=== PATIENT | male | born 1980 | race African-American/Black ===

== ENCOUNTER 2018-11-17 09:42 | Emergency (ER) | payer BC ==
--- NOTE | 2018-11-17 10:20 | ER Document Report ---
ED Extremity Problem, Lower - General Chief Complaint: Leg Pain Stated Complaint: RIGHT CALF PAIN Time Seen by Provider: 11/17/18 10:09 Primary Care Provider: [facility] [Provider Group] - Follow up as needed Mode of Arrival: Ambulatory Information source: Patient Notes: 38-year-old male presents to ED for complaint of right calf pain x2 weeks. He states that he fell asleep in a car after work for about 4 hours about a couple days before this pain started. He states both legs were hurting but the left leg stopped hurting in the right leg continued. He became more concerned when he drove to [place] and back and the pain became worse. Patient is alert oriented respirations regular and unlabored speaking in full sentences and he is able to walk with a even steady gait. There is no redness no swelling to the area. Patient is in no acute distress. Patient states he does smoke half pack a day. TRAVEL OUTSIDE OF THE [place] IN LAST 30 DAYS: No - HPI Patient complains to provider of: Pain. No: Injury, Swelling Location: Leg Occurred: Other - 2 weeks Onset/Duration: Gradual Quality of pain: Achy, Cramping Severity: Moderate Pain Level: 3 Recent injury: No Associated symptoms: Painful ambulation Exacerbated by: Walking Relieved by: Nothing - Related Data Allergies/Adverse Reactions: No Known Allergies Allergy (Unverified 11/17/18 09:42) Past Medical History - General Information source: Patient - Social History Smoking Status: Current Every Day Smoker Cigarette use (# per day): Yes - 1/2 pack/day Chew tobacco use (# tins/day): No Smoking Education Provided: Yes - 4 minutes Frequency of alcohol use: Occasional Drug Abuse: None Occupation: [employer] Lives with: Family Family History: Reviewed & Not Pertinent Patient has suicidal ideation: No Patient has homicidal ideation: No - Past Medical History Cardiac Medical History: Reports: Hx Hypercholesterolemia, Hx Hypertension Pulmonary Medical History: Reports: None EENT Medical History: Reports: None Neurological Medical History: Reports: None Endocrine Medical History: Reports: Hx Diabetes Mellitus Type 2 Renal/ Medical History: Reports: None Malignancy Medical History: Reports None GI Medical History: Reports: None Musculoskeletal Medical History: Reports None Skin Medical History: Reports None Psychiatric Medical History: Reports: None Traumatic Medical History: Reports: None Infectious Medical History: Reports: None Surgical Hx: Negative Past Surgical History: Reports: None Review of Systems - Review of Systems Constitutional: No symptoms reported EENT: No symptoms reported Cardiovascular: No symptoms reported Respiratory: No symptoms reported Gastrointestinal: No symptoms reported Genitourinary: No symptoms reported Male Genitourinary: No symptoms reported Musculoskeletal: Other - Right calf pain Skin: No symptoms reported Hematologic/Lymphatic: No symptoms reported Neurological/Psychological: No symptoms reported -: Yes All other systems reviewed and negative Physical Exam - Vital signs Vitals: Temp Pulse Resp BP Pulse Ox 98.7 F 89 16 165/88 H 97 11/17/18 09:51 11/17/18 09:51 11/17/18 09:51 11/17/18 09:51 11/17/18 09:51 Interpretation: Normal - General General appearance: Appears well, Alert - HEENT Head: Normocephalic, Atraumatic Eyes: Normal Pupils: PERRL - Respiratory Respiratory status: No respiratory distress Chest status: Nontender Breath sounds: Normal Chest palpation: Normal - Cardiovascular Rhythm: Regular Heart sounds: Normal auscultation Murmur: No - Abdominal Inspection: Normal Distension: No distension Bowel sounds: Normal Tenderness: Nontender Organomegaly: No organomegaly - Back Back: Normal, Nontender - Extremities General upper extremity: Normal inspection, Nontender, Normal color, Normal ROM, Normal temperature General lower extremity: Normal inspection, Normal color, Normal ROM, Normal temperature, Normal weight bearing. No: Braden's sign Calf: Tender. No: Abrasion, Instability, Laceration, Unable to bear weight, Other - Neurological Neuro grossly intact: Yes Cognition: Normal Orientation: AAOx4 Austin Coma Scale Eye Opening: Spontaneous Austin Coma Scale Verbal: Oriented Austin Coma Scale Motor: Obeys Commands Austin Coma Scale Total: 15 Speech: Normal Motor strength normal: LUE, RUE, LLE, RLE Sensory: Normal - Psychological Associated symptoms: Normal affect, Normal mood - Skin Skin Temperature: Warm Skin Moisture: Dry Skin Color: Normal Course - Re-evaluation Re-evalutation: 11/17/18 11:49 Doppler was negative and discussed with patient. Patient was recommended to drink some Gatorade and increase his fluid intake and follow-up with orthopedics if the pain continued. He states he has a appointment with his primary care tomorrow and he will discuss this with him. Patient's blood pressure was elevated but he stated that he had not taken his blood pressure medicine yet and he would take it when he got home. - Vital Signs Vital signs: Temp Pulse Resp BP Pulse Ox 98.2 F 85 18 176/89 H 100 11/17/18 11:32 11/17/18 11:32 11/17/18 11:32 11/17/18 11:32 11/17/18 11:32 Discharge - Discharge Clinical Impression: Leg pain, right Condition: Stable Disposition: HOME, SELF-CARE Instructions: Family Physicians / Practices Additional Instructions: Leg Pain, Nonspecific We did not find an obvious cause for your leg pain. There's no sign of blood clot, infection, or other serious disease. Possible causes of vague leg pain include muscle or joint inflammation, disc disease in the lower back, pressure on the nerves in the back, or reduced blood flow through the arteries of the leg. Rest the leg. Pain can be eased with an antiinflammatory pain medicine such as ibuprofen. If the pain involves a small area, a heating pad might help. Call the doctor or return if the leg becomes swollen, weak, discolored, or increasingly painful, or if you develop any other significant change in your health. Try increasing your fluid intake, drink Gatorade for the next several days, exercise walking and if this does not relieve your pain follow-up with orthopedics to see if they can find a cause for your pain. FOLLOW-UP CARE: If you have been referred to a physician for follow-up care, call the physicians office for an appointment as you were instructed or within the next two days. If you experience worsening or a significant change in your symptoms, notify the physician immediately or return to the Emergency Department at any time for re-evaluation. Forms: Elevated Blood Pressure, Smoking Cessation Education, Return to Work Referrals: [facility] [Provider Group] - Follow up as needed
[2018-11-17 11:34] VITALS: BP 176/89
--- NOTE | 2018-11-17 11:43 | RADIOLOGY REPORT (SQ) ---
EXAM DESCRIPTION: VENOUS UNILATERAL LOWER COMPLETED DATE/TIME: 11/17/2018 11:21 am REASON FOR STUDY: right calf pain COMPARISON: None. TECHNIQUE: Dynamic and static herrera scale and color images acquired of the right leg venous system. S elected spectral images acquired with additional compression and augmentation maneuvers. The contrala teral common femoral vein and saphenofemoral junction were also imaged. Images stored on PACS. LIMITATIONS: None. FINDINGS: COMMON FEMORAL: Normal phasicity, compression and augmentation. No visualized echogenic ma terial on herrera scale. No defects on color images. FEMORAL: Normal compression and augmentation. No visualized echogenic material on herrera scale. No defe cts on color images. POPLITEAL: Normal compression, augmentation. No visualized echogenic material on herrera scale. No defec ts on color images. POSTERIOR TIBIAL AND PERONEAL VEINS: Normal compression, augmentation. No visualized echogenic materi al on herrera scale. No defects on color images. GSV and SSV: Normal compression, augmentation. No visualized echogenic material on herrera scale. No def ects on color images. ANY DEEP VENOUS INSUFFICIENCY: No reflux on Valsalva ANY EVIDENCE OF POPLITEAL CYST: No. OTHER: No other significant finding. CONTRALATERAL COMMON FEMORAL VEIN AND SAPHENOFEMORAL JUNCTION: Normal phasicity, compression and augmentation. No visualized echogenic material on herrera scale. No de fects on color images. IMPRESSION: NO EVIDENCE OF DVT OR SVT IN THE RIGHT LEG. TECHNICAL DOCUMENTATION: JOB ID: [id number] [employer]- All Rights Reserved Reading location - IP/workstation name: [email or web address]
== END 2018-11-17 11:34 | disposition home or self-care (01) ==
LOC: ER 09:42
DX: M79.661 Pain in right lower leg (principal); E11.9 Type 2 diabetes mellitus without complications; I10 Essential (primary) hypertension; Z79.899 Other long term (current) drug therapy; F17.210 Nicotine dependence, cigarettes, uncomplicated; Z71.6 Tobacco abuse counseling
CPT/HCPCS: 93971; 99283